=== PATIENT | female | born 1945 | race Caucasian/White ===

== ENCOUNTER → 2016-04-08 | Outpatient (CLI) | payer MEDICARE, OTHER ==
[~2016-04-08] VITALS: Ht 158.8 cm; Wt 80.1 kg
[~2016-04-08] MED LIST: ALTACE 10MG TAB10 MG PO; ALTACE5 M1 PO; ASPIRIN E.C. 8181 MG PO; CENTRUM SILVER1 TA1 PO; FASTIN30 MG PO; GLUCOSAMINE & C1 CA2 PO; JUICE PLUS VITAMINS PO; Juice plus PO; OMEGA 31000 MG PO; PHENTERMINE15 MG PO; VIACTIV 500 MG-1 CT1 PO
[2016-04-08 09:56] VITALS: BP 137/74; PULSE 81
[2016-04-08 10:21] VITALS: BP 137/74; PULSE 81
== END ==
LOC: LIGHT 09:45
DX: I10 Essential (primary) hypertension (principal); G47.33 Obstructive sleep apnea (adult) (pediatric); E66.09 Other obesity due to excess calories; Z68.31 Body mass index [BMI] 31.0-31.9, adult

== ENCOUNTER → 2016-06-10 | Outpatient (CLI) | payer MEDICARE, OTHER ==
[~2016-06-10] VITALS: Ht 158.8 cm; Wt 80.1 kg
[2016-06-10 09:52] VITALS: BP 142/68; PULSE 78
== END ==
LOC: LIGHT 05-27 13:29
DX: I10 Essential (primary) hypertension (principal); G47.33 Obstructive sleep apnea (adult) (pediatric); E66.8 Other obesity; Z68.31 Body mass index [BMI] 31.0-31.9, adult; Z90.49 Acquired absence of other specified parts of digestive tract

== ENCOUNTER → 2016-07-15 | Outpatient (CLI) | payer MEDICARE, OTHER ==
[~2016-07-15] VITALS: Ht 158.8 cm; Wt 79.4 kg
[2016-07-15 11:06] VITALS: BP 124/72; PULSE 84
[2016-09-06 11:10] VITALS: BP 143/75; PULSE 70
== END ==
LOC: LIGHT 09:30
DX: I10 Essential (primary) hypertension (principal); G47.33 Obstructive sleep apnea (adult) (pediatric); E66.9 Obesity, unspecified; Z68.31 Body mass index [BMI] 31.0-31.9, adult

== ENCOUNTER → 2016-09-30 | Outpatient (CLI) | payer MEDICARE, OTHER ==
[~2016-09-30] VITALS: Ht 158.8 cm; Wt 80.1 kg
[2016-09-30 14:23] VITALS: BP 130/73; PULSE 76
== END ==
LOC: LIGHT 09-09 16:03
DX: I10 Essential (primary) hypertension (principal); G47.33 Obstructive sleep apnea (adult) (pediatric); E66.9 Obesity, unspecified; Z68.31 Body mass index [BMI] 31.0-31.9, adult; Z71.3 Dietary counseling and surveillance

== ENCOUNTER → 2016-12-02 | Outpatient (CLI) | payer MEDICARE, OTHER ==
[~2016-12-02] VITALS: Ht 158.8 cm; Wt 81.4 kg
[2016-12-02 08:53] VITALS: BP 124/76; PULSE 76
== END ==
LOC: LIGHT 08:54
DX: I10 Essential (primary) hypertension (principal); G47.33 Obstructive sleep apnea (adult) (pediatric); E66.9 Obesity, unspecified; Z68.32 Body mass index [BMI] 32.0-32.9, adult; Z71.3 Dietary counseling and surveillance; M15.9 Polyosteoarthritis, unspecified

== ENCOUNTER → 2016-12-16 | Outpatient (CLI) | payer MEDICARE, OTHER | LOC: MC.RAD 11:00 | DX: Z12.31 Encounter for screening mammogram for malignant neoplasm of breast (principal) ==

== ENCOUNTER → 2017-01-06 | Outpatient (CLI) | payer MEDICARE, OTHER ==
[~2017-01-06] VITALS: Ht 158.8 cm; Wt 81.2 kg
[2017-01-06 09:54] VITALS: BP 130/74; PULSE 84
== END ==
LOC: LIGHT 09:39
DX: I10 Essential (primary) hypertension (principal); G47.33 Obstructive sleep apnea (adult) (pediatric); E66.9 Obesity, unspecified; Z68.32 Body mass index [BMI] 32.0-32.9, adult; Z71.3 Dietary counseling and surveillance; M15.9 Polyosteoarthritis, unspecified

== ENCOUNTER → 2017-02-24 | Outpatient (CLI) | payer MEDICARE, OTHER ==
[~2017-02-24] VITALS: Ht 158.8 cm; Wt 80.5 kg
[2017-02-24 11:10] VITALS: BP 136/84; PULSE 60
== END ==
LOC: LIGHT 11:01
DX: I10 Essential (primary) hypertension (principal); G47.33 Obstructive sleep apnea (adult) (pediatric); E66.9 Obesity, unspecified; Z68.31 Body mass index [BMI] 31.0-31.9, adult; Z71.3 Dietary counseling and surveillance; M15.9 Polyosteoarthritis, unspecified

== ENCOUNTER → 2017-04-14 | Outpatient (CLI) | payer MEDICARE, OTHER ==
[~2017-04-14] VITALS: Ht 158.8 cm; Wt 80.7 kg
[2017-04-14 09:43] VITALS: BP 138/80; PULSE 72
== END ==
LOC: LIGHT 09:20
DX: I10 Essential (primary) hypertension (principal); G47.33 Obstructive sleep apnea (adult) (pediatric); E66.9 Obesity, unspecified; Z68.32 Body mass index [BMI] 32.0-32.9, adult; Z71.3 Dietary counseling and surveillance; M15.9 Polyosteoarthritis, unspecified
CPT/HCPCS: G0463

== ENCOUNTER → 2017-05-26 | Outpatient (CLI) | payer MEDICARE, OTHER ==
[~2017-05-26] VITALS: Ht 158.8 cm; Wt 82.8 kg
[2017-05-26 08:48] VITALS: BP 120/74; PULSE 80
== END ==
LOC: LIGHT 05-12 09:01
DX: I10 Essential (primary) hypertension (principal); G47.33 Obstructive sleep apnea (adult) (pediatric); E66.9 Obesity, unspecified; Z68.32 Body mass index [BMI] 32.0-32.9, adult; Z71.3 Dietary counseling and surveillance; M15.9 Polyosteoarthritis, unspecified
CPT/HCPCS: G0463

== ENCOUNTER → 2017-08-18 | Outpatient (CLI) | payer MEDICARE, OTHER ==
[~2017-08-18] VITALS: Ht 158.8 cm; Wt 83.7 kg
[2017-08-18 15:35] VITALS: BP 130/60; PULSE 80
== END ==
LOC: LIGHT 15:14
DX: I10 Essential (primary) hypertension (principal); G47.33 Obstructive sleep apnea (adult) (pediatric); E66.9 Obesity, unspecified; Z68.33 Body mass index [BMI] 33.0-33.9, adult; Z71.3 Dietary counseling and surveillance; M15.9 Polyosteoarthritis, unspecified
CPT/HCPCS: G0463

== ENCOUNTER → 2017-09-15 | Outpatient (CLI) | payer MEDICARE, OTHER ==
[~2017-09-15] VITALS: Ht 158.8 cm; Wt 82.6 kg
[2017-09-15 11:12] VITALS: BP 150/82; PULSE 76
== END ==
LOC: LIGHT 11:05
DX: I10 Essential (primary) hypertension (principal); G47.33 Obstructive sleep apnea (adult) (pediatric); E66.9 Obesity, unspecified; Z68.32 Body mass index [BMI] 32.0-32.9, adult; Z71.3 Dietary counseling and surveillance; M15.9 Polyosteoarthritis, unspecified
CPT/HCPCS: G0463

== ENCOUNTER → 2017-10-27 | Outpatient (CLI) | payer MEDICARE, OTHER ==
[~2017-10-27] VITALS: Ht 158.8 cm; Wt 83.2 kg
[2017-10-27 10:45] VITALS: BP 124/80; PULSE 80
== END ==
LOC: LIGHT 10-20 11:26
DX: I10 Essential (primary) hypertension (principal); G47.33 Obstructive sleep apnea (adult) (pediatric); M15.9 Polyosteoarthritis, unspecified; E66.9 Obesity, unspecified; Z68.33 Body mass index [BMI] 33.0-33.9, adult; Z71.3 Dietary counseling and surveillance
CPT/HCPCS: G0463

== ENCOUNTER → 2017-12-28 | Outpatient (CLI) | payer MEDICARE, OTHER | LOC: MC.RAD 11:00 | DX: Z12.31 Encounter for screening mammogram for malignant neoplasm of breast (principal) ==

== ENCOUNTER 2018-02-12 17:31 | Observation (INO) | payer MEDICARE, OTHER ==
[~2018-02-12] VITALS: Ht 157.5 cm; Wt 86.3 kg
[~2018-02-12 17:31] MED LIST changes: -OMEGA 31000 MG PO; +OMEGA-31 SGL PO
[2018-02-12] MEDS ORDERED: MOBIC 7.5MG7.5 MG PO (17:49)
[2018-02-12] MEDS ORDERED: XALATAN EYE DROPS OU (17:50)
[2018-02-12 18:13] LABS: BASO # 0.1 (0.0-0.2); BASO % 0.8 % (0.0-2.0); EOS # 0.1 (0.0-0.7); EOS % 1.7 % (0-4.0); GRAN # 4.5 (1.4-6.5); GRAN % 68.3 % (42.2-75.2); LYMPH # 1.4 (1.2-3.4); LYMPH % 21.6 % (20.0-51.0); MEAN CELL VOLUME 95 fl (80.0-100.0); MEAN CORPUSCULAR HEMOGLOBIN 31 pg (27.0-31.0); MEAN CORPUSCULAR HGB CONC 33 g/dl (33.0-37.0); MEAN PLATELET VOLUME 10.4 fl (7.4-10.4); MONO # 0.5 (0.1-0.6); MONO % 7.3 % (1.7-9.3); PLATELET COUNT 246 K/mm3 (130-400); RED BLOOD COUNT 3.85 M/mm3 (4.10-5.30); REDCELL DISTRIBUTION WIDTH-CV 12.6 % (11.5-14.5)
[2018-02-12 18:15] LABS: ALANINE AMINOTRANSFERASE 51 U/L (9-52); ALBUMIN 4.4 gm/dL (3.5-5.0); ALKALINE PHOSPHATASE 67 U/L (50-136); ANION GAP 6 mmol/L (7-16); AST,SGOT 44 U/L (15-37); BILIRUBIN,TOTAL 0.4 mg/dL (0.0-1.0); BLOOD UREA NITROGEN 15 mg/dL (7-17); CALCIUM 9.8 mg/dL (8.4-10.2); CARBON DIOXIDE 32 mmol/L (22-30); CHLORIDE 102 mmol/L (98-107); CREATININE, serum 0.81 mg/dL (0.52-1.25); GLUCOSE 119 mg/dL (74-106); LIPASE 105 U/L (23-300); POTASSIUM 3.8 mmol/L (3.4-5.0); SODIUM 140 mmol/L (137-145)
[2018-02-12 18:16] LABS: HEMATOCRIT 36.4 % (37.0-47.0)
[2018-02-12 18:28] LABS: TROPONIN-I < 0.012 ng/mL (0.000-0.034)
[2018-02-12 23:36] VITALS: BP 175/118; PULSE 74; TEMP 98.3
[2018-02-13] VITALS (9 sets, daily range): BP systolic 137–175; BP diastolic 58–118; PULSE 67–96; TEMP 97.7–98.3
[2018-02-13 00:52] LABS: PROTHROMBIN TIME 11.6 SECONDS (9.7-12.8)
[2018-02-13 01:26] LABS: TROPONIN-I 6 HR POST INITIAL < 0.012 ng/mL (0.000-0.034)
[2018-02-13 01:31] LABS: MAGNESIUM 1.8 mg/dL (1.6-2.3)
[2018-02-13 06:18] LABS: BASO # 0.1 (0.0-0.2); BASO % 0.7 % (0.0-2.0); EOS # 0.1 (0.0-0.7); EOS % 2.1 % (0-4.0); GRAN # 3.9 (1.4-6.5); GRAN % 58.4 % (42.2-75.2); HEMATOCRIT 37.2 % (37.0-47.0); LYMPH # 2.1 (1.2-3.4); LYMPH % 30.6 % (20.0-51.0); MEAN CELL VOLUME 95 fl (80.0-100.0); MEAN CORPUSCULAR HEMOGLOBIN 31 pg (27.0-31.0); MEAN CORPUSCULAR HGB CONC 32 g/dl (33.0-37.0); MONO # 0.5 (0.1-0.6); MONO % 7.9 % (1.7-9.3); PLATELET COUNT 210 K/mm3 (130-400); RED BLOOD COUNT 3.92 M/mm3 (4.10-5.30); REDCELL DISTRIBUTION WIDTH-CV 12.7 % (11.5-14.5)
[2018-02-13 06:27] LABS: ALANINE AMINOTRANSFERASE 47 U/L (9-52); ALBUMIN 4.2 gm/dL (3.5-5.0); ALKALINE PHOSPHATASE 59 U/L (50-136); ANION GAP 7 mmol/L (7-16); AST,SGOT 39 U/L (15-37); BILIRUBIN,TOTAL 0.7 mg/dL (0.0-1.0); BLOOD UREA NITROGEN 13 mg/dL (7-17); CALCIUM 9.4 mg/dL (8.4-10.2); CARBON DIOXIDE 28 mmol/L (22-30); CHLORIDE 107 mmol/L (98-107); CHOLESTEROL 208 mg/dL (120-200); CHOLESTEROL RISK RATIO 3.6; CREATININE, serum 0.75 mg/dL (0.52-1.25); GLUCOSE 95 mg/dL (74-106); HDL CHOLESTEROL 57 mg/dL; LDL CHOLESTEROL 134 mg/dL; POTASSIUM 3.9 mmol/L (3.4-5.0); SODIUM 142 mmol/L (137-145); TOTAL PROTEIN 7.9 gm/dL (6.4-8.2); TRIGLYCERIDE 83 mg/dL
[2018-02-13 07:19] LABS: TROPONIN-I < 0.012 ng/mL (0.000-0.034)
[2018-02-13] MEDS ORDERED: ASPIRIN E.C. 8181 MG PO (12:50)
== END 2018-02-13 13:39 | disposition home or self-care (01) ==
LOC: COL.ER 17:31 → MEDICAL 19:40 → EDBEDREQ 20:25 → SURG 23:13
PROVIDERS: Hospitalist; Nurse Practitioner; Nurse Practitioner Family
DX: R07.9 Chest pain, unspecified (principal); I10 Essential (primary) hypertension; D64.9 Anemia, unspecified; M72.2 Plantar fascial fibromatosis; G51.0 Bell's palsy; Z88.1 Allergy status to other antibiotic agents; Z79.82 Long term (current) use of aspirin; Z82.49 Family history of ischemic heart disease and other diseases of the circulatory system; Z83.3 Family history of diabetes mellitus
CPT/HCPCS: A9502; G0378; J1650; J2785; J7030

== ENCOUNTER → 2018-04-06 | Outpatient (CLI) | payer MEDICARE, OTHER ==
[~2018-04-06] VITALS: Ht 157.5 cm; Wt 81.6 kg
[~2018-04-06] MED LIST changes: +MOBIC 7.5MG7.5 MG PO; +XALATAN EYE DROPS OU
[2018-04-06 09:33] VITALS: BP 146/76; PULSE 84
== END ==
LOC: LIGHT 09:29
DX: I10 Essential (primary) hypertension (principal); G47.33 Obstructive sleep apnea (adult) (pediatric); M15.9 Polyosteoarthritis, unspecified; E66.9 Obesity, unspecified; Z68.32 Body mass index [BMI] 32.0-32.9, adult; Z71.3 Dietary counseling and surveillance
CPT/HCPCS: G0463

== ENCOUNTER → 2018-05-18 | Outpatient (CLI) | payer MEDICARE, OTHER ==
[~2018-05-18] VITALS: Ht 157.5 cm; Wt 81.6 kg
[2018-05-18 11:00] VITALS: BP 148/84; PULSE 96
== END ==
LOC: LIGHT 11:00
DX: I10 Essential (primary) hypertension (principal); G47.33 Obstructive sleep apnea (adult) (pediatric); M16.9 Osteoarthritis of hip, unspecified; E66.9 Obesity, unspecified; Z71.3 Dietary counseling and surveillance

== ENCOUNTER → 2018-06-15 | Outpatient (CLI) | payer MEDICARE, OTHER ==
[~2018-06-15] VITALS: Ht 157.5 cm; Wt 81.6 kg
[2018-06-15 10:32] VITALS: BP 126/64; PULSE 68
== END ==
LOC: LIGHT 10:21
DX: I10 Essential (primary) hypertension (principal); G47.33 Obstructive sleep apnea (adult) (pediatric); M15.9 Polyosteoarthritis, unspecified; E66.9 Obesity, unspecified; Z68.32 Body mass index [BMI] 32.0-32.9, adult; Z71.3 Dietary counseling and surveillance
CPT/HCPCS: G0463

== ENCOUNTER → 2018-08-30 | Outpatient (CLI) | payer MEDICARE, OTHER | LOC: ZCOL.LAB 12:44 | DX: Z01.812 Encounter for preprocedural laboratory examination (principal); Z86.14 Personal history of Methicillin resistant Staphylococcus aureus infection ==

== ENCOUNTER → 2019-02-01 | Outpatient (CLI) | payer MEDICARE, OTHER ==
[~2019-02-01] VITALS: Ht 157.5 cm; Wt 85.3 kg
[2019-02-01 15:13] VITALS: BP 146/66; PULSE 68
== END ==
LOC: LIGHT 08-10 14:13
DX: I10 Essential (primary) hypertension (principal); G47.33 Obstructive sleep apnea (adult) (pediatric); M15.9 Polyosteoarthritis, unspecified; E66.9 Obesity, unspecified; Z68.34 Body mass index [BMI] 34.0-34.9, adult; Z71.3 Dietary counseling and surveillance
CPT/HCPCS: G0463

== ENCOUNTER → 2019-02-09 | Outpatient (CLI) | payer MEDICARE, OTHER | LOC: MC.RAD 10:29 | DX: Z12.31 Encounter for screening mammogram for malignant neoplasm of breast (principal) ==

== ENCOUNTER → 2019-04-26 | Outpatient (CLI) | payer MEDICARE, OTHER ==
[~2019-04-26] VITALS: Ht 157.5 cm; Wt 82.3 kg
[2019-04-26 10:32] VITALS: BP 154/82; PULSE 64
== END ==
LOC: LIGHT 10:19
DX: Z68.33 Body mass index [BMI] 33.0-33.9, adult (principal); I10 Essential (primary) hypertension; G47.30 Sleep apnea, unspecified
CPT/HCPCS: G0463

== ENCOUNTER → 2019-05-24 | Outpatient (CLI) | payer MEDICARE, OTHER ==
[~2019-05-24] VITALS: Ht 157.5 cm; Wt 81.9 kg
[2019-05-24 10:51] VITALS: BP 142/86; PULSE 74
== END ==
LOC: LIGHT 10:44
DX: Z68.33 Body mass index [BMI] 33.0-33.9, adult (principal); G47.30 Sleep apnea, unspecified; I10 Essential (primary) hypertension
CPT/HCPCS: G0463

== ENCOUNTER → 2019-09-13 | Outpatient (CLI) | payer MEDICARE, OTHER ==
[~2019-09-13] VITALS: Ht 157.5 cm; Wt 79.4 kg
[2019-09-13 14:07] VITALS: BP 130/60; PULSE 86
== END ==
LOC: LIGHT 14:00
DX: E66.8 Other obesity (principal); Z68.32 Body mass index [BMI] 32.0-32.9, adult; I10 Essential (primary) hypertension; G47.30 Sleep apnea, unspecified
CPT/HCPCS: G0463

== ENCOUNTER → 2019-11-08 | Outpatient (CLI) | payer MEDICARE, OTHER ==
[~2019-11-08] VITALS: Ht 157.5 cm; Wt 79.4 kg
[2019-11-08 14:45] VITALS: BP 138/76; PULSE 72
== END ==
LOC: LIGHT 11-01 11:12
DX: E66.8 Other obesity (principal); Z68.32 Body mass index [BMI] 32.0-32.9, adult; I10 Essential (primary) hypertension
CPT/HCPCS: G0463

== ENCOUNTER 2020-02-07 09:45 | Outpatient (RCR) | payer MEDICARE, OTHER | END 2020-02-21 | disposition home or self-care (01) | LOC: WSPT | DX: M19.072 Primary osteoarthritis, left ankle and foot (principal); M19.071 Primary osteoarthritis, right ankle and foot ==

== ENCOUNTER → 2020-03-26 | Outpatient (CLI) | payer MEDICARE, OTHER | LOC: MC.RAD 13:45 | DX: Z12.31 Encounter for screening mammogram for malignant neoplasm of breast (principal) ==

== ENCOUNTER 2020-07-31 08:24 | Outpatient (RCR) | payer MEDICARE, OTHER | END 2020-08-01 09:34 | disposition home or self-care (01) | LOC: WSPT 08:24 | DX: M19.071 Primary osteoarthritis, right ankle and foot (principal); M19.072 Primary osteoarthritis, left ankle and foot ==

== ENCOUNTER → 2021-04-15 | Outpatient (CLI) | payer MEDICARE | LOC: MC.RAD 09:30 | DX: Z12.31 Encounter for screening mammogram for malignant neoplasm of breast (principal) ==

== ENCOUNTER → 2022-07-06 | Outpatient (CLI) | payer MEDICARE | LOC: MC.RAD 10:22 | DX: Z12.31 Encounter for screening mammogram for malignant neoplasm of breast (principal) ==

== ENCOUNTER → 2023-07-26 | Outpatient (CLI) | payer MEDICARE | LOC: MC.RAD 10:46 | DX: Z12.31 Encounter for screening mammogram for malignant neoplasm of breast (principal) ==